=== PATIENT | female | born 1995 | race American Indian/Alaskan Native ===

== ENCOUNTER 2020-10-01 14:49 | Emergency (ER) | payer SELFPAY ==
[2020-10-01 16:31] VITALS: BP 120/72
[2020-10-01] MEDS ORDERED: KETOROLAC 60 MG/2 ML INJ IM ONE (16:40)
--- NOTE | 2020-10-01 16:45 | Emergency Department Report ---
ED General Adult HPI - General Chief complaint: Animal Bite Stated complaint: DOG BITE RT LEG Time Seen by Provider: 10/01/20 16:01 Source: patient Mode of arrival: Ambulatory Limitations: No Limitations - History of Present Illness Initial comments: 25-year-old -[place] female patient presents with complaints of right lower back pain radiating down her right leg x2 weeks. Patient states she had a dog bite to the lower right thigh that occurred on 08/19/2020 and that she believes it is infected. Patient states she did complete her antibiotics that were prescribed at that time and denies any drainage or redness from the wound. She states the wound has completely healed and she denies any fever/chills/sweats. Patient rates her pain as a 7/10 in severity and states it is not improving with OTC anti-inflammatories. 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 She describes the pain as burning and states it worsens when she sits on her right buttocks. No saddle paresthesia or loss of bladder/bowel control per patient. No direct injuries to the spine per patient. She denies history of sciatica Severity scale (0 -10): 10 - Related Data Previous Rx's Medication Instructions Recorded Last Taken Type Acetaminophen/Codeine [Tylenol 1 tab PO Q8H PRN #4 tab 10/01/20 Unknown Rx /Codeine # 3 tab] Diclofenac Sodium 50 mg PO TID PRN #21 tablet. 10/01/20 Unknown Rx Prednisone [predniSONE 10 mg 10 mg PO .TAPER #1 tab.ds.pk 10/01/20 Unknown Rx (6-Day Pack, 21 Tabs)] methocarbamoL [Methocarbamol] 1,500 mg PO TID PRN #30 tablet 10/01/20 Unknown Rx Allergies Allergy/AdvReac Type Severity Reaction Status Date / Time No Known Allergies Allergy Unverified 10/01/20 16:19 ED Review of Systems ROS: Stated complaint: DOG BITE RT LEG Other details as noted in HPI Constitutional: denies: chills, diaphoresis, fever, malaise, weakness Respiratory: denies: shortness of breath Cardiovascular: denies: chest pain Gastrointestinal: denies: abdominal pain Musculoskeletal: as per HPI, back pain Skin: denies: rash, lesions, change in color Neurological: denies: numbness, paresthesias, abnormal gait ED Past Medical Hx - Past Medical History Previous Medical History?: No - Surgical History Past Surgical History?: No - Medications Home Medications: Home Medications Medication Instructions Recorded Confirmed Last Taken Type Acetaminophen/Codeine [Tylenol 1 tab PO Q8H PRN #4 tab 10/01/20 Unknown Rx /Codeine # 3 tab] Diclofenac Sodium 50 mg PO TID PRN #21 tablet. 10/01/20 Unknown Rx Prednisone [predniSONE 10 mg 10 mg PO .TAPER #1 tab.ds.pk 10/01/20 Unknown Rx (6-Day Pack, 21 Tabs)] methocarbamoL [Methocarbamol] 1,500 mg PO TID PRN #30 tablet 10/01/20 Unknown Rx ED Physical Exam - General Limitations: No Limitations General appearance: alert, in no apparent distress - Head Head exam: Present: atraumatic, normocephalic - Eye Eye exam: Present: normal appearance - Respiratory Respiratory exam: Absent: respiratory distress - Cardiovascular Cardiovascular Exam: Present: regular rate - GI/Abdominal GI/Abdominal exam: Present: soft. Absent: tenderness - Extremities Exam Extremities exam: Present: full ROM. Absent: calf tenderness (Mild tenderness or swelling noted to the right thigh or lower leg; scar noted to right anterior lower thigh where patient states dog bite occurred-no drainage or redness or induration noted at the wound site) - Expanded Lower Extremity Exam Right Gait: Positive: antalgic - Back Exam Back exam: Present: full ROM, paraspinal tenderness (Right lower lumbar/SI joint) - Expanded Back Exam Expanded Back exam: Absent: saddle anesthesia Back exam: Sciatic Notch Tenderness: Right, Positive Straight Leg Raise: Right, Negative Straight Leg Raising: Right - Neurological Exam Neurological exam: Present: alert, oriented X3, normal gait. Absent: motor sensory deficit - Psychiatric Psychiatric exam: Present: normal affect, normal mood - Skin Skin exam: Present: warm, dry, intact, normal color. Absent: rash ED Course Vital Signs 10/01/20 16:19 Temperature 97.7 F Pulse Rate 84 Respiratory 18 Rate Blood Pressure 120/72 [Right] O2 Sat by Pulse 100 Oximetry ED Medical Decision Making - Medical Decision Making 25-year-old -[place] female patient presents with complaints of right lower back pain radiating down her right leg x2 weeks. Patient states she had a dog bite to the lower right thigh that occurred on 08/19/2020 and that she believes it is infected. Patient states she did complete her antibiotics that were prescribed at that time and denies any drainage or redness from the wound. She states the wound has completely healed and she denies any fever/chills/sweats. Patient rates her pain as a 7/10 in severity and states it is not improving with OTC anti-inflammatories. 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 She describes the pain as burning and states it worsens when she sits on her right buttocks. No saddle paresthesia or loss of bladder/bowel control per patient. No direct injuries to the spine per patient. She denies history of sciatica History and physical are consistent with sciatica. Will treat with NSAIDs, muscle relaxers, and stretching. Recommend follow-up with primary care in 3 days. Discussed signs and symptoms that should prompt immediate return to the emergency department in detail with patient who verbalized understanding. She is well-appearing, her vitals are within normal limits, she is stable for discharge home. Critical care attestation.: If time is entered above; I have spent that time in minutes in the direct care of this critically ill patient, excluding procedure time. ED Disposition Clinical Impression: Right-sided low back pain with right-sided sciatica Disposition: TO HOME OR SELFCARE Is pt being admited?: No Condition: Stable Instructions: Sciatica Prescriptions: Diclofenac Sodium 50 mg PO TID PRN #21 tablet. PRN Reason: pain methocarbamoL [Methocarbamol] 1,500 mg PO TID PRN #30 tablet PRN Reason: muscle spasm/tightness Prednisone [predniSONE 10 mg (6-Day Pack, 21 Tabs)] 10 mg PO .TAPER #1 tab.ds.pk Acetaminophen/Codeine [Tylenol /Codeine # 3 tab] 1 tab PO Q8H PRN #4 tab PRN Reason: Pain , Severe (7-10) Referrals: [facility] [Provider Group] - 3-5 Days Forms: Work/School Release Form(ED)
== END 2020-10-01 17:00 | disposition home or self-care (01) ==
LOC: ED 14:49
DX: M54.41 Lumbago with sciatica, right side (principal); Z79.899 Other long term (current) drug therapy
CPT/HCPCS: 99281